=== PATIENT | female | born 1965 | race Caucasian/White ===

== ENCOUNTER 2016-10-05 10:38 | Emergency (ER) | payer OTHER ==
[~2016-10-05] VITALS: Ht 162.6 cm; Wt 100.0 kg
[~2016-10-05 10:38] MED LIST: AMO250 PO; BIA500 PO; CITA10TA14 PO; COG1 PO; LANS15CA24 PO; ZOC20 PO
[2016-10-05 10:39] VITALS: BP 123/87; PULSE 72; RESP 20; O2SAT 93
--- NOTE | 2016-10-05 10:47 | ED.REPORT ---
HPI-Abd Pain F 40 and Over Date of Service Oct 05, 2016 ED Provider: Barbara Jo History of Present Illness: had fentayl in the field. pain in the vaginal area bleeding now nausea. feels like her regular periods. has been haiving irregular periods, all the time. last menses was about 4 months ago. gets monthly injection from [facility]. had a severe pain. Had since this am, pain is compared to labor pain. possible 07/29 has decreased from too high to list Nursing Notes Stated Complaint: COMPLAINT OF PAIN Chief Complaint: Female Abdominal Pain Nursing Notes Reviewed: Yes Allergies: Coded Allergies: No Known Allergies (Verified , 10/05/16) Scheduled Amoxicillin-Expunged Drug, Do Not Renew! (Amoxicillin-Expunged Drug, Do Not Renew!) 250 Mg Capsule 1,000 MG PO BID Benztropine Mes-Expunged Drug, Do Not Renew! (Benztropine Mes-Expunged Drug, Do Not Renew!) 1 Mg Tablet 1 MG PO BID Citalopram-Expunged Drug, Do Not Renew! (Citalopram-Expunged Drug, Do Not Renew! ) 10 Mg Tablet 10 MG PO DAILY Clarithromycin (Biaxin) 500 Mg Tablet 500 MG PO BID Lansoprazole-Expunged Drug, Do Not Renew! (Lansoprazole-Expunged Drug, Do Not Renew!) 15 Mg Capsule.dr 15 MG PO BID Simvastatin-Expunged Drug, Choose New Med! (Simvastatin-Expunged Drug, Choose New Med!) 20 Mg Tablet 20 MG PO HS General Time Seen by MD: 10:46 Chief Complaint Other (vaginal pain) Hx Obtained From: Patient Sudden in Onset?: Yes Onset Occurred: Just prior to arrival Severity: Current: Pain level 5 out of 10 Past Medical History Past Medical History Schizophrenia - several admissions after medication discontinuation. GERD Reports: Asthma, Denies: Diabetes mellitus Past Surgical History Reports: Family History Noncontributory Smoking History Never Smoker Social History Alcohol Use: Denies alcohol use Drug Use: Denies drug use Occupation in [employer] since Wednesday Ambulatory Status Independent Review of Systems Basic Review of Systems Eyes: Vision NL, No discharge Skin: No bruising, No rash, No itch Psychiatric: Normal thought content Physical Exam Vital Signs Vital Signs (First) Date Time Temp Pulse Resp B/P Pulse Ox O2 Delivery O2 Flow Rate FiO2 10/05/16 10:39 36.7 72 20 123/87 93 Room Air Initial VS: Reviewed, Vital signs normal Head / Eyes: Atraumatic, Normocephalic, PERRL ENT: Mucous membranes moist, Conjunctiva normal, No scleral icterus Neck: Supple, Non-tender, Full range of motion Lymphatic: No lymphadenopathy Extremities: Vascular intact, Neuro intact, No swelling, No tenderness Skin: Warm, Dry, No cyanosis Neurologic: Alert, Oriented, Nonfocal Psychiatric: Mood/affect normal, Behavior normal, Normal thought content General/Constitutional: Awake, Alert, No acute distress, Well appearing, Well developed, Well hydrated, Well nourished, Cooperative, Not toxic appearing Respiratory / Chest: Atraumatic, Breath sounds NL, Breath sounds = bilat, No respiratory distress, No rales, No rhonchi, No wheezing, No retractions Cardiovascular: Heart rate NL, Regular rhythm, Heart sounds NL, No gallop, No murmurs, No rubs Abdomen: Atraumatic, Soft, Non-tender Back: Atraumatic, Inspection NL, Full range of motion Head / Eyes: Atraumatic, Normocephalic, PERRL, EOMI ENT: Atraumatic, Airway patent, Mucous membranes moist, Pharynx NL Skin: Atraumatic, Color NL, No rash Female Genitourinary: Resident Athletic Trainer present, External genitalia NL, No cervical motion tend, Os closed, No foreign body, No adnexal mass, No adnexal tenderness , No uterine enlargement Vaginal Bleeding / Discharge: Positive: Bleeding mild Interpretation & Diagnostics Lab Results Interpretation Result Diagram: 10/05/16 1040 10/05/16 1040 Test 10/05/16 10:40 10/05/16 12:27 White Blood Count 7.2th/mm3 (3.8-10.1) Red Blood Count 5.09mil/mm3 (3.90-5.20) Hemoglobin 14.6g/dL (12.0-15.6) Hematocrit 42.6% (35.0-46.0) Mean Corpuscular Volume 83.7fL (81-100) Mean Corpuscular Hemoglobin 28.7pg (27.0-35.0) Mean Corpuscular Hemoglobin Concent 34.3% (32.0-37.0) Red Cell Distribution Width 13.4% (12.3-15.4) Platelet Count 298bil/L (150-400) Neutrophils (%) (Auto) 45.6% (40-74) Lymphocytes (%) (Auto) 42.1% (14-46) Monocytes (%) (Auto) 9.7% (4-12) Eosinophils (%) (Auto) 1.9% (0-5) Basophils (%) (Auto) 0.4% (0-3) Hold Purple Top Tube Received (Received) Hold Blue Top Tube Received (Received) Sodium Level 139mEq/L (134-144) Potassium Level 4.0mEq/L (3.5-5.2) Chloride Level 101mEq/L (97-108) Carbon Dioxide Level 21mmol/L (18-29) Blood Urea Nitrogen 15mg/dL (6-24) Creatinine 0.82mg/dL (0.57-1.00) Estimat Glomerular Filtration Rate 105mL/min (>59) Glucose Level 103mg/dL (60-99) Calcium Level 9.8mg/dL (8.5-10.1) Total Bilirubin 0.3mg/dL (0.0-1.2) Aspartate Amino Transf (AST/SGOT) 18U/L (0-50) Alanine Aminotransferase (ALT/SGPT) 28U/L (0-32) Alkaline Phosphatase 82U/L (25-150) Total Protein 8.5g/dL (6.4-8.4) Albumin 4.3g/dL (3.4-5.0) HCG Beta Subunit 0.500mIU/mL Hold [place] Top Tube Received (Received) Urine Color Straw (YELLOW) Urine Appearance Hazy (CLEAR,HAZY) Urine pH 5.5 (5.0-8.0) Urine Specific [place] 1.025 (1.003-1.035) Urine Protein Negativemg/dL (NEG,TRACE) Urine Glucose (UA) Negativemg/dL (NEGATIVE) Urine Ketones Negativemg/dL (NEGATIVE) Urine Occult Blood Trace (NEGATIVE) Urine Nitrite Negative (NEGATIVE) Urine Bilirubin Negative (NEGATIVE) Urine Urobilinogen Normalmg/dL (NORMAL) Urine Leukocyte Esterase Negative (NEGATIVE) Urine RBC 0-2/hpf (0-2) Urine WBC 0-5/hpf (0-5) Urine Epithelial Cells Occasional/hpf (NONE-MOD) Urine Crystals None seen (NONE SEEN) Urine Bacteria None/hpf (NONE-FEW) Urine Hyaline Casts None/lpf (NONE) Urine Granular Casts None seen (NONE SEEN) Urine Waxy Casts None seen (NONE SEEN) Urine Red Blood Cell Casts None seen (NONE SEEN) Urine White Blood Cell Casts None seen (NONE SEEN) Urine Mucus Present (None Seen) Urine Trichomonas None seen (NONE SEEN) Urine Yeast None (NONE SEEN) Urinalysis Comment None Urine Culture Reflexed Not indicated Lab Results Interpretation: urine is negative CT Abd / Pelvis Interpretation ROCEDURE: CT KUB ([id number]) INDICATIONS: sudden onset pain this am recording pain. TECHNIQUE: Noncontrast 5 mm thick sections acquired from the diaphragms to the symphysis. 5 mm thick coronal and sagittal reformats were then performed. For radiation dose reduction, the following was used: automated exposure control, adjustment of mA and/or kV according to patient size. COMPARISON: None. FINDINGS: Image quality: Diagnostic. Lung bases: Either mild of focal pleural thickening within the posterior right costophrenic angle verses a trace pleural effusion is present. Otherwise, the included lung bases are unremarkable. The heart is normal in size without a significant pericardial effusion. Urinary system: Both kidneys are normal in size. A 2 mm nonobstructing mid left renal calculus is noted (image 36, series 4). No additional renal calculi are evident. No hydronephrosis or perinephric fat stranding. Both ureters appear non-dilated throughout their expected courses. Bladder wall thickness is normal; no calcified bladder stones. Other solid organs: The liver is hypodense when compared to the spleen. There are areas of expected density but in the region of the gallbladder fossa, likely representing areas of fatty sparing. The spleen is unremarkable. The adrenals and pancreas are within normal limits. Peritoneum and bowel: There is a small hiatal hernia. Otherwise, the stomach, duodenum, and remainder of the small bowel loops are nondilated. The colon is unremarkable. There is no bowel obstruction. No free fluid, loculated fluid collection or free air is evident. Nodes and vessels: No retroperitoneal or mesenteric adenopathy by size criteria. Aorta and inferior vena cava are normal in caliber. Abdominal wall: No ventral hernias. Pelvic soft tissues: No free pelvic fluid. No inguinal hernias or adenopathy. No loculated fluid collections are evident. The uterus is slightly prominent in size. The ovaries do not appear to be enlarged, but are not adequately evaluated. Bones: No suspicious bony lesions. No vertebral body compression fractures. Age-appropriate degenerative changes of the imaged lumbar spine are more prominent at the lumbosacral junction. There also age-appropriate degenerative changes of the bilateral hips and sacroiliac joints. IMPRESSION: 1. No obstructing renal or ureteral calculi. No hydronephrosis or hydroureter. 2. 3 mm nonobstructing left renal calculus. 3. Small moderate-sized hiatal hernia. 4. Hepatic steatosis. 5. Mild pleural thickening involving the posterior right costophrenic angle verses a trace effusion. 6. No bowel obstruction. Dictated by: Sebastián Pope M.D. on 10/05/2016 at 12:42 Approved by: Sebastián Pope M.D. on 10/05/2016 at 12:47 US Focused OB OCEDURE: US PELVIC SONOGRAM WITH TRANSVAG AND DOPPLER, LIMITED INDICATIONS: severe pelvic pain TECHNIQUE: Real-time scanning was performed of the pelvic organs, with image documentation. Additional endovaginal scanning was necessary due to incomplete visualization of the adnexal and endometrial structures by transabdominal scanning. COMPARISON: None. FINDINGS: PELVIS MEASUREMENTS: Uterus dimensions (orthrogonal): 11.35 cm, 5.28 cm, 6.33 cm Endometrium Thickness: 7.30 mm. There is heterogeneous appearance of the endometrium, without hypervascularity. Right Ovary dimensions (orthogonal): 2.85 cm, 2.39 cm, 3.43 cm, 2.26 cm Doppler interrogation of the right ovary is precluded due to patient anatomy. Left Ovary dimensions (orthogonal): 3.16 cm, 2.57 cm, 3.14 cm Doppler interrogation demonstrates normal arterial and venous waveforms. IMPRESSION: Right ovary not well seen, and only visualized by transabdominal scanning. Doppler interrogation of the right ovary was unable to be performed. Therefore technically, ovarian torsion cannot be excluded. Otherwise, grossly unremarkable right ovarian appearance and size Please correlate clinically. Normal appearance of the left ovary. Dictated by: Rolando García M.D. on 10/05/2016 at 13:28 Approved by: Rolando García M.D. on 10/05/2016 at 13:32 Re-Eval/Medical Decision Med Decision/Clinical Course 51 year old female presents for evualation of vaginal pain which started early today. She compares the pain to labor pain. Labs are normal. Urine is normal, patient is not . Ultrasound does not identify any abnormality, CT KUB does not identify any cause of the pain. Patient states her pain is now at a 4 and is her normal abd pain. The vaginal pain has resolved. No sign of torsion, fibroid, tubo ovarian abscess or appy or UTI. Discharge & Departure Primary Impression: Vaginal discomfort Disposition: Home Patient Instructions: Acute Abdominal Pain (ED) Additional Instructions: The ultrasound is normal. No sign of a fibroid or cysts or twisting of the ovary. Your labs are normal. The urine is normal, no sign of an infection. The CT KUB is normal no sign of a stone. You are at your baseline ongoing pain and in the same location. I do not have an explanation for the pain that you experienced today. Please follow with [facility]. Return with any concerns. Referrals: Maryana Gonzalez MD (PCP) EDSupervising Provider for [facility]: Ashley Cancino MD copies to: Maryana Gonzalez MD, Sue ARNP Oct 05, 2016 10:47
[2016-10-05 11:19] LABS: BASOPHILS % (AUTO) 0.4 % (0-3); EOSINOPHILS % (AUTO) 1.9 % (0-5); MONOCYTES % (AUTO) 9.7 % (4-12); Mean Corpuscular Hemoglobin 28.7 pg (27.0-35.0); Mean Corpuscular Volume 83.7 fL (81-100); NEUTROPHILS % (AUTO) 45.6 % (40-74); Platelet Count 298 bil/L (150-400)
[2016-10-05] MEDS ORDERED: 0.9% Sodium Chloride 1,000 ML IV ONE (11:35)
[2016-10-05 11:46] VITALS: BP 106/79; PULSE 67; RESP 16; O2SAT 97
[2016-10-05 12:53] LABS: APPEARANCE,URINE HAZY (CLEAR,HAZY); COLOR,URINE STRAW (YELLOW); OCCULT BLOOD,URINE TRACE (NEGATIVE); PH,URINE 5.5 (5.0-8.0); UROBILINOGEN,URINE NORMAL (NORMAL)
--- NOTE | 2016-10-05 13:34 | DRSVH ---
PROCEDURE: US PELVIC SONOGRAM WITH TRANSVAG AND DOPPLER, LIMITED INDICATIONS: severe pelvic pain TECHNIQUE: Real-time scanning was performed of the pelvic organs, with image documentation. Additional endovagi nal scanning was necessary due to incomplete visualization of the adnexal and endometrial structures by transabdominal scanning. COMPARISON: None. FINDINGS: PELVIS MEASUREMENTS: Uterus dimensions (orthrogonal): 11.35 cm, 5.28 cm, 6.33 cm Endometrium Thickness: 7.30 mm. There is heterogeneous appearance of the endometrium, without h ypervascularity. Right Ovary dimensions (orthogonal): 2.85 cm, 2.39 cm, 3.43 cm, 2.26 cm Doppler interrogation of the right ovary is precluded due to patient anatomy. Left Ovary dimensions (orthogonal): 3.16 cm, 2.57 cm, 3.14 cm Doppler interrogation demonstrates normal arterial and venous waveforms. IMPRESSION: Right ovary not well seen, and only visualized by transabdominal scanning. Doppler interr ogation of the right ovary was unable to be performed. Therefore technically, ovarian torsion cannot be excluded. Otherwise, grossly unremarkable right ovarian appearance and size Please correlate clini juan f. Normal appearance of the left ovary. Dictated by: Rolando García M.D. on 10/05/2016 at 13:28 Approved by: Rolando García M.D. on 10/05/2016 at 13:32
--- NOTE | 2016-10-05 13:49 | DRSVH ---
PROCEDURE: CT KUB ([id number]) INDICATIONS: sudden onset pain this am recording pain. TECHNIQUE: Noncontrast 5 mm thick sections acquired from the diaphragms to the symphysis. 5 mm thick coronal an d sagittal reformats were then performed. For radiation dose reduction, the following was used: aut omated exposure control, adjustment of mA and/or kV according to patient size. COMPARISON: None. FINDINGS: Image quality: Diagnostic. Lung bases: Either mild of focal pleural thickening within the posterior right costophrenic angle leydi ses a trace pleural effusion is present. Otherwise, the included lung bases are unremarkable. The h eart is normal in size without a significant pericardial effusion. Urinary system: Both kidneys are normal in size. A 2 mm nonobstructing mid left renal calculus is n oted (image 36, series 4). No additional renal calculi are evident. No hydronephrosis or perinephri c fat stranding. Both ureters appear non-dilated throughout their expected courses. Bladder wall th ickness is normal; no calcified bladder stones. Other solid organs: The liver is hypodense when compared to the spleen. There are areas of expected density but in the region of the gallbladder fossa, likely representing areas of fatty sparing. The spleen is unremarkable. The adrenals and pancreas are within normal limits. Peritoneum and bowel: There is a small hiatal hernia. Otherwise, the stomach, duodenum, and remainde r of the small bowel loops are nondilated. The colon is unremarkable. There is no bowel obstruction . No free fluid, loculated fluid collection or free air is evident. Nodes and vessels: No retroperitoneal or mesenteric adenopathy by size criteria. Aorta and inferior vena cava are normal in caliber. Abdominal wall: No ventral hernias. Pelvic soft tissues: No free pelvic fluid. No inguinal hernias or adenopathy. No loculated fluid c ollections are evident. The uterus is slightly prominent in size. The ovaries do not appear to be e nlarged, but are not adequately evaluated. Bones: No suspicious bony lesions. No vertebral body compression fractures. Age-appropriate degene rative changes of the imaged lumbar spine are more prominent at the lumbosacral junction. There also age-appropriate degenerative changes of the bilateral hips and sacroiliac joints. IMPRESSION: 1. No obstructing renal or ureteral calculi. No hydronephrosis or hydroureter. 2. 3 mm nonobstructing left renal calculus. 3. Small moderate-sized hiatal hernia. 4. Hepatic steatosis. 5. Mild pleural thickening involving the posterior right costophrenic angle verses a trace effusion. 6. No bowel obstruction. Dictated by: Sebastián Pope M.D. on 10/05/2016 at 12:42 Approved by: Sebastián Pope M.D. on 10/05/2016 at 12:47
[2016-10-05 14:16] VITALS: BP 121/75; PULSE 70; RESP 12; O2SAT 96
[2016-10-05 15:18] VITALS: BP 121/75; PULSE 70; RESP 12; O2SAT 96
== END 2016-10-05 15:19 | disposition home or self-care (01) ==
LOC: SED 10:38
DX: R10.2 Pelvic and perineal pain (principal); K76.0 Fatty (change of) liver, not elsewhere classified; K44.9 Diaphragmatic hernia without obstruction or gangrene; K21.9 Gastro-esophageal reflux disease without esophagitis; F20.9 Schizophrenia, unspecified
CPT/HCPCS: 36415; 51701; 74176; 76830; 76856; 80053; 81000; 84702; 85025; 93976; 96361; 96374; 99285; J1885; J7030